=== PATIENT | male | born 1975 | race Caucasian/White ===

== ENCOUNTER → 2020-02-09 13:41 | Outpatient (CLI) | payer OTHER, SELFPAY ==
--- NOTE | 2020-02-09 13:48 | XR_ITS ---
PROCEDURE: XR LUMBAR SPINE MIN 4V CLINICAL INDICATION: LUMBAGO W/ SCIATICA, R SIDE COMPARISON: No exams were available for comparison FINDINGS: No fracture or dislocation. No lytic or blastic change. There is normal mineralization. Mild degenerative disc disease at L5-S1 with mild facet sclerosis changes at that level Other findings:None. IMPRESSION: Mild degenerative changes L5-S1 Dictated by: Rey Velazco MD 02/09/2020 14:25 Electronically signed by Rey Velazco MD in [place] 02/09/2020 14:25
== END ==
PROVIDERS: PCP Family Medicine; Visit Provider Family Medicine
DX: M54.41 Lumbago with sciatica, right side (principal)
CPT/HCPCS: 72110

== ENCOUNTER → 2021-08-30 13:11 | Outpatient (CLI) | payer OTHER, SELFPAY ==
--- NOTE | 2021-08-30 13:58 | ECG_ITS ---
APPROVED REPORT Exam: Resting ECG HR:129 bpm ECG Measurements Heart Rate 129 AXES QRSd 94 QRS -46 QT 274 T 54 QTc 350 Conclusion ATRIAL FLUTTER/TACHYCARDIA WITH RAPID VENTRICULAR RESPONSE LEFT AXIS DEVIATION [QRS AXIS < -30] INCOMPLETE RIGHT BUNDLE BRANCH BLOCK [90+ ms QRS DURATION, TERMINAL R IN V1/V2, 40+ ms S IN I/aVL/V4/V5/V6] ABNORMAL ECG UNCONFIRMED REPORT Electronically signed by : Henrry Holliday MD 08/30/2021 15:30:47
== END ==
PROVIDERS: PCP Family Medicine; Visit Provider Internal Medicine Cardiovascular Disease
DX: I48.0 Paroxysmal atrial fibrillation (principal)
CPT/HCPCS: 93005